=== PATIENT | male | born 1985 ===

== ENCOUNTER 2017-09-01 16:21 | Emergency (ER) | payer MEDICAID ==
[2017-09-01 16:36] VITALS: TEMP 98; O2SAT 98
[2017-09-01] MEDS ORDERED: Bacitracin 500 Units/gm Oint Foilpak UD ONE (17:06)
[2017-09-01] MEDS ORDERED: Bacitracin 500 Units/gm Oint Foilpak UD TOP ONE (17:13)
[2017-09-01] MEDS ORDERED: Tdap Vaccine 0.5 ml Vial (10-64 yrs) IM ONE ×2 (17:13→17:22)
--- NOTE | 2017-09-01 18:00 | RAD ---
PROCEDURE: Left Knee Radiographs. HISTORY: Pain. COMPARISON: None. FINDINGS: BONES: No fracture identified. JOINTS: No dislocation seen. Bony articulations appear maintained. JOINT EFFUSION: There is no significant joint effusion. OTHER FINDINGS: None. IMPRESSION: No fracture or dislocation identified.
--- NOTE | 2017-09-01 18:11 | C.PDOC ---
History Of Present Illness 32 y/o male c/o pain to left knee s/p trip and fall yesterday, landed on knee. pt c/o pain and swelling to left knee with abrasion. denies any other injuries. no analgesics tried, last tdap unknown. Time Seen by Provider: 09/01/17 16:38 Chief Complaint (Nursing): Lower Extremity Problem/Injury History/Exam Limitations: no limitations Onset/Duration Of Symptoms: Days (2) Current Symptoms Are (Timing): Still Present Severity: Mild - Knee Description Of Injury: Fell Past Medical History Vital Signs: Last Vital Signs Temp 98.0 F 09/01/17 16:33 Pulse 70 09/01/17 18:37 Resp 16 09/01/17 18:37 BP 121/78 09/01/17 18:37 Pulse Ox 98 09/01/17 18:37 - Medical History PMH: Asthma Family History: States: Unknown Family Hx - Social History Hx Tobacco Use: No Hx Alcohol Use: No Hx Substance Use: No (DENIES) - Immunization History Hx Tetanus Toxoid Vaccination: No Hx Influenza Vaccination: No Hx Pneumococcal Vaccination: No Review Of Systems Constitutional: Negative for: Fever, Chills Cardiovascular: Negative for: Chest Pain Musculoskeletal: Positive for: Other (knee pain left). Negative for: Neck Pain , Shoulder Pain Skin: Positive for: Other (abrasin left knee) Neurological: Negative for: Weakness Physical Exam - Physical Exam Appears: Non-toxic, No Acute Distress Skin: Warm, Dry, Other (dime sized abrasion to left knee) Head: Atraumatic, Normacephalic Neck: No Midline Cervical Tenderness, No Paracervical Tenderness Back: No Vertebral Tenderness Extremity: Normal ROM, Tenderness (left knee, worse with movement), No Pedal Edema, No Calf Tenderness Pulses: Left Dorsalis Pedis: Normal, Right Dorsalis Pedis: Normal Neurological/Psych: Oriented x3, Normal Speech, Normal Cognition, Normal Motor, Normal Sensation ED Course And Treatment O2 Sat by Pulse Oximetry: 98 Medical Decision Making Medical Decision Making: left knee pain and abrasion s/p fall; tdap, tylenol and xray 1803 no fx noted on xray. d/c home Disposition Counseled Patient/Family Regarding: Studies Performed, Diagnosis, Need For Followup, Rx Given - Disposition Referrals: Jose Juan Loyd MD [Staff Provider] - Disposition: HOME/ ROUTINE Disposition Time: 18:11 Condition: GOOD Additional Instructions: Apply bacitracin to abrasion 2 times a day. Keep flower bandage of for support. Cold compresses to knee several times a day. Tylenol for pain. Follow up with Dr Loyd if pain persists after a week. Prescriptions: Acetaminophen [Tylenol 325mg tab] 650 mg PO Q6 #30 tab Bacitracin OINT 1 applic TOP BID #1 tube Instructions: Knee Sprain (DC), Skin Abrasions (DC) Forms: [facility] (Slovenian), General Discharge Instructions - Clinical Impression Clinical Impression: Abrasion of knee, left, Knee injury
[2017-09-01 18:38] VITALS: BP 121/78; PULSE 70; RESP 16
== END 2017-09-01 18:37 | disposition home or self-care (01) ==
LOC: C.ER 16:21
DX: S80.212A Abrasion, left knee, initial encounter (principal); W01.0XXA Fall on same level from slipping, tripping and stumbling without subsequent striking against object, initial encounter